=== PATIENT | male | born 1990 | race Caucasian/White ===

== ENCOUNTER → 2024-09-09 12:34 | Outpatient (REF) | payer BC, SELFPAY | LOC: WOUND 12:34 | PROVIDERS: ATTENDING PHYSICIAN Surgery; FAMILY PHYSICIAN Nurse Practitioner Family | DX: T65.891A Toxic effect of other specified substances, accidental (unintentional), initial encounter (principal); Y92.009 Unspecified place in unspecified non-institutional (private) residence as the place of occurrence of the external cause | CPT/HCPCS: 10140; 99203 ==

== ENCOUNTER → 2024-09-16 09:44 | Outpatient (REF) | payer BC, SELFPAY | LOC: WOUND 09:44 | PROVIDERS: ATTENDING PHYSICIAN Surgery; FAMILY PHYSICIAN Nurse Practitioner Family | DX: T23.252A Burn of second degree of left palm, initial encounter (principal); T53.5X1A Toxic effect of chlorofluorocarbons, accidental (unintentional), initial encounter | CPT/HCPCS: 99212 ==